=== PATIENT | male | born 1965 | race Caucasian/White ===

== ENCOUNTER → 2017-06-08 | Outpatient (CLI) | payer OTHER ==
--- NOTE | 2017-06-08 10:45 | RAD ---
DATE: 06/08/2017 EXAM: DIGITAL DIAGNOSTIC BILATERAL HISTORY: Bilateral breast enlargement COMPARISON: None available This study was interpreted with the benefit of Computerized Aided Detection (CAD). The breast parenchyma is primarily fatty replaced. Breast parenchyma level density A. FINDINGS: The breasts are fatty in nature. There are small smooth benign-appearing lymph node type densities project over the axillary tail regions bilaterally. No suspicious breast densities or microcalcifications are evident. IMPRESSION: No significant abnormality is detected. BI-RADS CATEGORY: 2 BENIGN FINDING(S) RECOMMENDED FOLLOW-UP: CLIN FOLLOW UP IMAGING CLINICALLY INDICATED Mammography is a sensitive method for finding small breast cancers, but it does not detect them all and is not a substitute for careful clinical examination. A negative mammogram does not negate a clinically suspicious finding and should not result in delay in biopsying a clinically suspicious abnormality. "Our facility is accredited by the [employer] Mammography Program."
== END | disposition home or self-care (01) ==
LOC: MAMMO 10:14
DX: N62 Hypertrophy of breast (principal)
CPT/HCPCS: G0204; 77066